=== PATIENT | female | born 1965 | race Hispanic/Latino ===

== ENCOUNTER 2019-05-29 12:19 | Outpatient (CLI) | payer BC, MEDICARE ==
[2019-05-29 13:07] LABS: Iron 69 ug/dL (37-170)
== END 2019-05-29 12:20 | disposition home or self-care (01) ==
LOC: LAB 12:19
PROVIDERS: ATTEND Psychiatry & Neurology Neurology
DX: Z13.89 Encounter for screening for other disorder (principal)
CPT/HCPCS: 36415; 80051; 82533; 82565; 83540

== ENCOUNTER 2019-10-16 13:06 | Outpatient (CLI) | payer BC, MEDICARE | END 2019-10-16 13:07 | disposition home or self-care (01) | LOC: LAB 13:06 | PROVIDERS: ATTEND Psychiatry & Neurology Neurology | DX: Z00.00 Encounter for general adult medical examination without abnormal findings (principal) | CPT/HCPCS: 36415; 80051; 82565; 82947 ==